=== PATIENT | female | born 1970 | race Caucasian/White ===

== ENCOUNTER 2019-12-15 00:20 | Emergency (ER) | payer MEDICAID, OTHER ==
[~2019-12-15] VITALS: Ht 152.4 cm; Wt 63.0 kg
[2019-12-15 00:30] VITALS: BP 111/67
[2019-12-15 01:19] LABS: BASOPHILS # (AUTO) 0.1 K/uL (0.00-0.22); BASOPHILS % (AUTO) 0.7 % (0.0-2.0); EOSINOPHILS # (AUTO) 0.1 K/uL (0-0.4); EOSINOPHILS % (AUTO) 0.4 % (0.0-4.0); HEMATOCRIT 34.8 % (36-48); HEMOGLOBIN 11.6 g/dL (12.0-16.0); LYMPHOCYTES # (AUTO) 2.4 K/uL (2.5-16.5); LYMPHOCYTES % (AUTO) 18.8 % (20.5-51.1); MEAN CORPUSCULAR HEMOGLOBIN 28 pg (27-31); MEAN CORPUSCULAR HGB CONC 33 g/dL (33-37); MEAN CORPUSCULAR VOLUME 85.4 fL (80-94); MONOCYTES # (AUTO) 0.9 K/uL (0.8-1.0); NEUTROPHILS # (AUTO) 9.2 K/uL (1.8-7.7); NEUTROPHILS % (AUTO) 73.1 % (42.2-75.2); PLATELET COUNT (AUTO) 422 K/uL (140-450); RED BLOOD CELL COUNT(AUTO) 4.07 MIL/uL (4.20-5.40); RED CELL DISTRIBUTION WIDTH 13.4 % (11.6-13.7); WHITE BLOOD COUNT (AUTO) 12.6 K/uL (4.8-10.8)
[2019-12-15] MEDS: MORPHINE SULFATE 4 MG/ML SYR IVP ONE (01:35)
[2019-12-15] MEDS: ONDANSETRON 4 MG/2 ML VIAL IVP ONE (01:35)
[2019-12-15 01:36] LABS: ALBUMIN 3.4 g/dL (3.4-5.0); ANION GAP 15.2 (8-16); CARBON DIOXIDE 23.6 mmol/L (21-32); CREATININE 0.9 mg/dL (0.6-1.3); POTASSIUM 3.8 mmol/L (3.5-5.1); TOTAL BILIRUBIN 0.3 mg/dL (0.0-1.0)
[2019-12-15 04:43] VITALS: BP 107/56
== END 2019-12-15 04:43 | disposition home or self-care (01) ==
LOC: MED 00:20
DX: R22.1 Localized swelling, mass and lump, neck (principal); R59.1 Generalized enlarged lymph nodes; R91.1 Solitary pulmonary nodule; D72.829 Elevated white blood cell count, unspecified; D64.9 Anemia, unspecified; R73.9 Hyperglycemia, unspecified
CPT/HCPCS: 36415; 70491; 71260; 80053; 81025; 85025; 86611; 86703; 96374; 96375; 99285; J2270; J2405; Q9967

== ENCOUNTER 2020-06-18 14:43 | Emergency (ER) | payer OTHER ==
[~2020-06-18] VITALS: Ht 152.4 cm; Wt 61.2 kg
[2020-06-18 14:53] VITALS: BP 142/77
[2020-06-18 15:07] VITALS: BP 142/77
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
--- NOTE | 2020-06-18 15:22 | NUR ---
adam champagne at bedside evaluating pt.
[2020-06-18] MEDS ORDERED: ONDANSETRON 4 MG ODT PO ONE (15:30)
[2020-06-18] MEDS ORDERED: KETOROLAC 30 MG/ML VIAL IM ONE (15:30)
--- NOTE | 2020-06-18 16:26 | NUR ---
jose kohli pt.
== END 2020-06-18 16:27 | disposition home or self-care (01) ==
LOC: MED 14:43
DX: S39.012A Strain of muscle, fascia and tendon of lower back, initial encounter (principal); V49.9XXA Car occupant (driver) (passenger) injured in unspecified traffic accident, initial encounter; Y93.89 Activity, other specified; Y92.89 Other specified places as the place of occurrence of the external cause; Y99.8 Other external cause status; C85.80 Other specified types of non-Hodgkin lymphoma, unspecified site
CPT/HCPCS: 96372; 99283; J1885; Q0162